=== PATIENT | male | born 1960 | race Hispanic/Latino ===

== ENCOUNTER → 2024-05-13 | Outpatient (REF) | payer OTHER ==
[~2024-05-13] MED LIST: BASAGLAR K100 UNIT/1 SQ; GLYXAMBI PO; LANTUS 3ML100 UNITS/ SC; LISINOPRIL10 MG PO; LOSARTAN POTAS100 MG PO; LOVASTATIN40 MG PO; METFORMIN PO; NOVOLIN R100 UNIT/1 SC; NOVOLOG SC; OMEGA 3 1,0001 EACH PO; PRAVASTATIN PO; [UNRECOGNIZED DRUG - OTHER]
== END ==
LOC: RAD 07:52 → EDSTATUS 05-19 11:00
PROVIDERS: ATTEND Orthopaedic Surgery Adult Reconstructive Orthopaedic Surgery
DX: Z01.818 Encounter for other preprocedural examination (principal); M17.11 Unilateral primary osteoarthritis, right knee
CPT/HCPCS: 93005